=== PATIENT | male | born 1950 | race Caucasian/White ===

== ENCOUNTER → 2016-12-29 08:31 | Outpatient (CLI) | payer MEDICARE, BC ==
--- NOTE | 2016-12-30 22:01 | EC ---
PATIENT:PIPO LIN DATE OF SERVICE: 12/29/16 SEX: M MEDICAL RECORD: [id number] DATE OF : 48 LOCATION:D[facility] AGE OF PATIENT: 66 ADMISSION DATE: 12/29/16 REFERRING PHYSICIAN: INTERPRETING PHYSICIAN: FREEDOM KHALIL MD ECHOCARDIOGRAM REPORT ECHO CHARGES 4 ECHO COMPLETE CLINICAL DIAGNOSIS: A-FIB/CAD/HTN ECHOCARDIOGRAPHIC MEASUREMENTS (adult normal given) AC root (d.<3.7cm) 3.6 cm LV Septum d (<1.2 cm> 1.7 cm Valve Excursion 2.0 cm LV Septum (systole) 2.3 cm Left Atria (s.<4.0cm> 4.3 cm LVPW d(<1.2cm) 1.4 cm RV (d.<2.3cm) 2.2 cm LVPW (sytole) 2.1 cm LV diastole(<5.6CM) 4.8 cm MV E-F(>70mm/sec) cm LV systole 2.6 cm LVOT Diameter 1.9 cm MV exc.(>10mm) cm Est.ejection fraction (50-75%) % Pericardial Effusion N DOPPLER: LVIT cm/sec A 64.0 cm/sec E 71.0 cm/sec LA cm/sec RVSP 20.1 mmHg LVOT 159 cm/sec AOP1/2T m/s Asc. Ao 169 cm/sec RVOT 98.0 cm/sec RA cm/sec PA 122 cm/sec AV Gradient Peak 11.4 mmHg AV Mean 5.1 mmHg AV Area 2.0 cm MV Gradient Peak 4.6 mmHg MV Mean 1.8 mmHg MV Area cm COMMENTS: [employer] Former: Krystle ESCOBAROE Fur Examiner: Denise Khalil TAPE# PACS DATE OF SERVICE: 12/29/2016 PROCEDURE: Transthoracic echocardiogram. FINDINGS: 1. The left ventricle has evidence of mild to moderate concentric left ventricular hypertrophy with an ejection fraction of 60% to 65%. There is no evidence of regional wall motion abnormalities. Inflow characteristics are normal. 2. The mitral valve, although not well visualized did not demonstrate ECHOCARDIOGRAM REPORT [id number] PIPO LIN significant regurgitation or stenosis. 3. The right ventricle is normal size, normal function. 4. The right atrium is normal size, normal function. 5. Tricuspid valve is normal with normal right ventricular systolic pressures. 6. The pericardium is normal. 7. The pulmonic valve is normal. IMPRESSION: Evidence of mild hypertensive heart disease with preserved LV systolic function. TRANSINT:[id number] Voice Confirmation ID: [id number] DOCUMENT ID: [id number] FREDEOM KHALIL MD at 2201 CC: [id number] DICTATION DATE: 12/29/16 1552 WILDLIFE TECHNICIAN: 12/29/[id number] DEP CLI 12/29/16 [id number] [place] [address]
== END | disposition home or self-care (01) ==
LOC: D.ECHO 08:31
DX: I25.10 Atherosclerotic heart disease of native coronary artery without angina pectoris (principal); I10 Essential (primary) hypertension; I48.91 Unspecified atrial fibrillation

== ENCOUNTER → 2017-03-16 16:57 | Outpatient (CLI) | payer MEDICARE, BC ==
[2017-03-16 20:03] LABS: CHOL - HDL RATIO 5.3 ratio (2.3-4.9); LDL-HDL RATIO 3.5 ratio (1.5-3.5)
== END | disposition home or self-care (01) ==
LOC: D.LABREF 16:57
PROVIDERS: Internal Medicine Cardiovascular Disease
DX: E78.5 Hyperlipidemia, unspecified (principal)

== ENCOUNTER → 2017-05-06 16:49 | Outpatient (CLI) | payer MEDICARE, BC ==
[2017-05-06 19:34] LABS: CHOL - HDL RATIO 2.7 ratio (2.3-4.9)
== END | disposition home or self-care (01) ==
LOC: D.LABREF 16:49
PROVIDERS: Internal Medicine Cardiovascular Disease
DX: E78.5 Hyperlipidemia, unspecified (principal)

== ENCOUNTER 2017-11-03 05:57 | Emergency (ER) | payer MEDICARE, BC ==
[~2017-11-03] VITALS: Ht 177.8 cm; Wt 100.0 kg
[2017-11-03 06:01] VITALS: Ht 177.8 cm; Wt 100.0 kg
[2017-11-03 06:49] LABS: BASOPHILS 0.6 % (0-2); EOSINOPHILS 3.1 % (0-7); HEMATOCRIT 46.9 % (42.0-54.0); IMMATURE GRANULOCYTES 0.2 % (0-5); LYMPHOCYTES 20.7 % (15-50); MCH 30.6 pg (26.0-34.0); MCHC 34.1 g/dL (31.0-37.0); MCV 89.7 fL (80.0-100.0); MEAN PLATELET VOLUME 9.1 fL (7.4-10.4); MONOCYTES 5.4 % (2-11); PLATELET COUNT 216 10x3/uL (130-400); RBC 5.23 10x6/uL (4.20-6.10); RDW 13.8 % (11.5-14.5); WBC 8.3 10x3/uL (4.8-10.8)
[2017-11-03 07:10] LABS: ALBUMIN 3.8 g/dL (3.4-5.0); ALKALINE PHOSPHATASE 193 U/L (46-116); ALT (SGPT) 39 U/L (10-68); BILIRUBIN - TOTAL 0.56 mg/dL (0.2-1.3); CALC OSMOLALITY 287 mosm/kg (275-300); CALCIUM 9.1 mg/dL (8.5-10.1); CARBON DIOXIDE 28.2 mmol/L (21.0-32.0); CHLORIDE - SERUM 107 mmol/L (98-107); CREATININE - SERUM 1.2 mg/dL (0.6-1.3); GLUCOSE 123 mg/dL (74-106); PROTEIN - SERUM 7.6 g/dL (6.4-8.2); SODIUM 143 mmol/L (136-145); UREA NITROGEN 18 mg/dL (7-18); eGFR NON AFRICAN AMERICAN 64 mL/min (90-120)
[2017-11-03 07:16] LABS: CKMB 4.3 U/L (0.0-3.6); CREATINE KINASE 245 UL (21-232); TROPONIN-I < 0.017 ng/mL (0.000-0.060)
[2017-11-03] MEDS ORDERED: MECLIZINE HCL25 MG PO (08:53)
[2017-11-03] MEDS ORDERED: ZOFRAN ODT4 MG/UDTAB PO (08:53)
[2017-11-03 09:02] VITALS: BP 139/82
== END 2017-11-03 09:02 | disposition home or self-care (01) ==
LOC: D.ER 05:57
PROVIDERS: Family Medicine
DX: R42 Dizziness and giddiness (principal); R11.10 Vomiting, unspecified; I10 Essential (primary) hypertension

== ENCOUNTER → 2018-05-17 08:18 | Outpatient (CLI) | payer MEDICARE, BC ==
[2017-11-03 06:01] VITALS: BMI 31.6
[~2018-05-17 08:18] MED LIST: MECLIZINE HCL25 MG PO; ZOFRAN ODT4 MG/UDTAB PO
--- NOTE | 2018-05-25 11:18 | ST ---
PATIENT:PIPO LIN MEDICAL RECORD: [id number] SEX: M LOCATION:[facility] ORDER #: ADMISSION DATE: 05/17/18 AGE OF PATIENT: 68 REFERRING PHYSICIAN: INTERPRETING PHYSICIAN: CHARLI MERCER MD DATE OF SERVICE: 05/17/2018 PROCEDURE: Nuclear stress test. INDICATION: Angina, coronary artery disease, abnormal ECG. He was exercised on standard Lexiscan protocol with 32 mCi of sestamibi injected at peak stress, 11 mCi were used previously for rest images. FINDINGS: Gated SPECT reveals preserved ejection fraction at 63%. However, there is decreased thickening and brightening throughout the inferior segments. SPECT imaging Cardiolite was used as myocardial fusion agent. There is a fixed perfusion defect inferiorly. This includes the basal, mid, apical inferior segments. There is no significant reversibility. This is compatible with previous inferior myocardial infarction. The remaining segments are with homogeneous uptake at rest and stress. OVERALL IMPRESSION: 1. This is an abnormal nuclear stress test suggestive of a previous inferior myocardial infarction. 2. Gated SPECT reveals preserved ejection fraction greater than 60% in this patient with ongoing symptomatology. The current scan does suggest presence of hemodynamically significant coronary artery disease and a previous inferior myocardial infarction; however, no ongoing significant ischemic burden. We would do standard medical management on treatment of the coronary artery disease and cardiac risk factors. If this symptomatology persist, we will consider coronary angiography. TRANSINT:[id number] Voice Confirmation ID: [id number] DOCUMENT ID: [id number] CHARLI MERCER MD at 1118 CC: [id number] DICTATION DATE: 05/18/18 1203 SOCIAL WORKER PSYCHIATRIC: 05/19/18 0328 DEP CLI 05/17/[address] [id number]
== END | disposition home or self-care (01) ==
LOC: D.HCCARDIO 08:18
DX: I25.119 Atherosclerotic heart disease of native coronary artery with unspecified angina pectoris (principal)

== ENCOUNTER → 2018-06-15 17:37 | Outpatient (CLI) | payer MEDICARE, BC ==
[2017-11-03 06:01] VITALS: BMI 31.6
[2018-06-15 18:39] LABS: CHOL - HDL RATIO 2.9 ratio (2.3-4.9); LDL-HDL RATIO 1.5 ratio (1.5-3.5)
== END | disposition home or self-care (01) ==
LOC: D.LABREF 17:37
PROVIDERS: ATTEND Internal Medicine Interventional Cardiology
DX: E78.5 Hyperlipidemia, unspecified (principal)